=== PATIENT | female | born 1980 | race Asian ===

== ENCOUNTER 2019-05-08 12:17 | Emergency (ER) | payer BC ==
[~2019-05-08] VITALS: Ht 170.2 cm; Wt 64.9 kg
[2019-05-08 12:22] VITALS: BP 113/59; Ht 170.2 cm; Wt 64.9 kg
== END 2019-05-08 13:27 | disposition home or self-care (01) ==
LOC: ED 12:17
DX: S61.251A Open bite of left index finger without damage to nail, initial encounter (principal); W54.0XXA Bitten by dog, initial encounter; Y93.89 Activity, other specified; Y92.89 Other specified places as the place of occurrence of the external cause; Y99.8 Other external cause status
CPT/HCPCS: 90715